=== PATIENT | female | born 1970 | race Caucasian/White ===

== ENCOUNTER → 2016-05-02 | Outpatient (CLI) | payer OTHER | LOC: BMCIMAGING 15:41 | PROVIDERS: ATTEND Podiatrist Foot & Ankle Surgery | DX: M77.31 Calcaneal spur, right foot (principal); M79.671 Pain in right foot ==

== ENCOUNTER → 2017-02-21 | Outpatient (CLI) | payer BC | LOC: FIMAGING 13:12 | PROVIDERS: ATTEND Family Medicine | DX: Z13.820 Encounter for screening for osteoporosis (principal) ==

== ENCOUNTER 2017-11-12 08:56 | Emergency (ER) | payer BC ==
[2017-11-12 09:26] LABS: PLATELET COUNT 336 10^3/uL (150-400)
--- NOTE | 2017-11-12 09:31 | EDPHY ---
H & P Stated Complaint: 2 weeks trembling in l arm/chest discomfort Time Seen by Provider: 11/12/17 09:11 HPI/ROS: CHIEF COMPLAINT: Chest pain and shortness of breath HISTORY OF PRESENT ILLNESS: 46-year-old female with anemia presents with chest pain and shortness of breath. 2 week history of persistent chest pain. The chest pain is sometimes sharp and stabbing and otherwise described as pressure, but has never gone away in the past 2 weeks. Associated with exertional shortness of breath and a dry cough. Feels short of breath when walking her dog. Left arm also feels occasionally tremulous at night, no numbness or weakness. Cardiac risk factors positive for hypertension. Nonsmoker; no family history; no diabetes or hypercholesterolemia. REVIEW OF SYSTEMS: complete 10 point ROS reviewed and is negative except for the noted elements in the HPI - Personal History LMP (Females 10-55): 22-28 Days Ago Current Tetanus Diphtheria and Acellular Pertussis (TDAP): Unsure - Medical/Surgical History Hx Asthma: No Hx Chronic Respiratory Disease: No Hx Diabetes: No Hx Cardiac Disease: No Hx Renal Disease: No Hx Cirrhosis: No Hx Alcoholism: No Hx HIV/AIDS: No Hx Splenectomy or Spleen Trauma: No Other PMH: htn - Social History Smoking Status: Never smoked Drug Use: None - Physical Exam Exam: General Appearance: Alert, pleasant Eyes: Pupils equal and round, no conjunctival pallor or injection ENT, Mouth: Mucous membranes moist Neck: Normal inspection Respiratory: Lungs are clear to auscultation Cardiovascular: Regular rate and rhythm Gastrointestinal: Abdomen is soft and nontender Neurological: A&O, nonfocal exam Skin: Warm and dry, no rash Extremities: Nontender, no pedal edema Vascular: 2+ radial pulses Psychiatric: Anxious Constitutional: Initial Vital Signs Temperature (C) 36.9 C 11/12/17 08:59 Heart Rate 96 11/12/17 08:59 Respiratory Rate 19 11/12/17 08:59 Blood Pressure 170/111 H 11/12/17 08:59 O2 Sat (%) 99 11/12/17 08:59 O2 Delivery Mode Room Air Allergies/Adverse Reactions: No Known Allergies Allergy (Unverified 11/12/17 08:59) Home Medications: Medication Instructions Recorded Clonidine 11/12/17 Medical Decision Making - Diagnostics EKG Interpretation: EKG interpreted by me reveals normal sinus rhythm, rate 84, no ST or T segment changes. Interpretation: Normal EKG Imaging Results: Imaging Impressions Chest X-Ray 11/12/17 09:13 Impression: Normal. No acute process. Imaging: I viewed and interpreted images myself ED Course/Re-evaluation: This patient presents with a 3 day history of persistent chest pain. Stat EKG reveals no evidence of ischemia or dysrhythmia and chest x-ray is unremarkable. Initial troponin is normal. Given prolonged chest pain of greater than 72 hr , I feel that I can safely exclude acute coronary syndrome, with unremarkable EKG and normal troponin. Laboratory studies, including D-dimer and BNP are unremarkable. Perc score is 0 ; I feel I can safely exclude acute pulmonary embolism as diagnosis. In addition she is not significantly anemic. Unclear etiology of symptoms. She ambulated throughout the emergency department and maintained an oxygen saturation of 95%. Patient will follow up as planned with PCP on Friday. She will also call cardiology for an appointment. Warning signs discussed. Differential Diagnosis: Differential diagnosis includes though it is not limited to pneumonia, pneumothorax, pulmonary embolism, aortic dissection, pericarditis, acute coronary syndrome. - Data Points Laboratory Results: Laboratory Results 11/12/17 09:20 11/12/17 09:20 11/12/17 11/12/17 11/12/17 09:20 09:20 09:20 WBC RBC Hgb Hct MCV MCH MCHC RDW Plt Count MPV Neut % (Auto) Lymph % (Auto) [place] % (Auto) Eos % (Auto) Baso % (Auto) Nucleat RBC Rel Count Absolute Neuts (auto) Absolute Lymphs (auto) Absolute Monos (auto) Absolute Eos (auto) Absolute Basos (auto) Absolute Nucleated RBC Immature Gran % Immature Gran # D-Dimer 0.35 ug/mLFEU ug/mLFEU (0.00-0.50) Sodium 139 mEq/L mEq/L (135-145) Potassium 4.2 mEq/L mEq/L (3.3-5.0) Chloride 105 mEq/L mEq/L (97-110) Carbon Dioxide 25 mEq/l mEq/l (22-31) Anion Gap 9 mEq/L mEq/L (8-16) BUN 12 mg/dL mg/dL (7-23) Creatinine 0.6 mg/dL mg/dL (0.6-1.0) Estimated GFR > 60 Glucose 89 mg/dL mg/dL (70-100) Calcium 9.0 mg/dL mg/dL (8.5-10.4) POC Troponin I 0.02 ng/mL ng/mL (0.00-0.08) NT-Pro-B Natriuret Pep 97 pg/mL pg/mL (0-125) 11/12/17 09:20 WBC 4.21 10^3/uL 10^3/uL (3.80-9.50) RBC 4.18 10^6/uL 10^6/uL (4.18-5.33) Hgb 12.1 g/dL L g/dL (12.6-16.3) Hct 37.0 % L % (38.0-47.0) MCV 88.5 fL fL (81.5-99.8) MCH 28.9 pg pg (27.9-34.1) MCHC 32.7 g/dL g/dL (32.4-36.7) RDW 18.0 % H % (11.5-15.2) Plt Count 336 10^3/uL 10^3/uL (150-400) MPV 9.1 fL fL (8.7-11.7) Neut % (Auto) 58.1 % % (39.3-74.2) Lymph % (Auto) 29.5 % % (15.0-45.0) [place] % (Auto) 9.3 % % (4.5-13.0) Eos % (Auto) 1.9 % % (0.6-7.6) Baso % (Auto) 1.0 % % (0.3-1.7) Nucleat RBC Rel Count 0.0 % % (0.0-0.2) Absolute Neuts (auto) 2.45 10^3/uL 10^3/uL (1.70-6.50) Absolute Lymphs (auto) 1.24 10^3/uL 10^3/uL (1.00-3.00) Absolute Monos (auto) 0.39 10^3/uL 10^3/uL (0.30-0.80) Absolute Eos (auto) 0.08 10^3/uL 10^3/uL (0.03-0.40) Absolute Basos (auto) 0.04 10^3/uL 10^3/uL (0.02-0.10) Absolute Nucleated RBC 0.00 10^3/uL 10^3/uL (0-0.01) Immature Gran % 0.2 % % (0.0-1.1) Immature Gran # 0.01 10^3/uL 10^3/uL (0.00-0.10) D-Dimer Sodium Potassium Chloride Carbon Dioxide Anion Gap BUN Creatinine Estimated GFR Glucose Calcium POC Troponin I NT-Pro-B Natriuret Pep Point of Care Test Results: Chemistry 11/12/17 09:20 POC Troponin I 0.02 ng/mL ng/mL (0.00-0.08) Departure - Departure Disposition: Home, Routine, Self-Care Clinical Impression: Chest pain Qualifiers: Chest pain type: other chest pain Qualified Code(s): R07.89 - Other chest pain Condition: Good Instructions: Chest Pain (ED) Additional Instructions: 1. Based upon the testing done in the Emergency Department today we see no evidence of a heart attack. 2. We are unable to fully exclude coronary artery disease based upon the testing available in the Emergency Department. 3. For this reason, we would like you to be seen by cardiology for consideration of additional testing within the next 3 days. 4. Please contact the medical secretary you have been referred to schedule this appointment as soon as possible. Their offices are typically open from 8:30am- 5pm M-F. 5. Please return to the Emergency Department immediately for any recurrent chest pain, difficulty breathing or other concerns. Referrals: Gladys Luis MD [Primary Care Provider] - As per Instructions Cain Alas MD [Medical Doctor] - As per Instructions (Call to make an appointment.)
[2017-11-12 10:05] VITALS: BP 131/72
--- NOTE | 2017-11-12 14:27 | CPEKG ---
Test Reason : OPEN Blood Pressure : / mmHG Vent. Rate : 084 BPM Atrial Rate : 083 BPM P-R Int : 147 ms QRS Dur : 080 ms QT Int : 361 ms P-R-T Axes : 046 019 017 degrees QTc Int : 427 ms Sinus rhythm Confirmed by Olga Lan ([id number]) on 11/12/2017 2:26:40 PM Referred By: Confirmed By:Olga Lan
== END 2017-11-12 10:34 | disposition home or self-care (01) ==
DX: R07.9 Chest pain, unspecified (principal); R06.02 Shortness of breath; I10 Essential (primary) hypertension
CPT/HCPCS: 84484-PO